=== PATIENT | male | born 1980 | race Caucasian/White ===

== ENCOUNTER → 2021-06-18 | Outpatient (CLI) | payer OTHER | LOC: M LAB 11:49 | PROVIDERS: ATTEND Emergency Medicine | DX: Z30.2 Encounter for sterilization (principal); Z53.8 Procedure and treatment not carried out for other reasons ==

== ENCOUNTER → 2021-06-19 | Outpatient (REF) | payer OTHER ==
[2021-06-19 16:31] LABS: SEMEN APPEARANCE OPAQUE (OPAQUE); SEMEN VISCOSITY LIQUID (LIQUID); SEMEN VOLUME 1.5 ml (2.0-5.0); WBC CONCENTRATION <=1 M/ml (<=1 M/ml)
== END ==
LOC: M LAB REF 16:28
PROVIDERS: ATTEND Surgery
DX: Z30.2 Encounter for sterilization (principal)

== ENCOUNTER 2024-11-10 09:23 | Emergency (ER) | payer OTHER ==
[~2024-11-10] VITALS: Ht 170.2 cm; Wt 62.6 kg
[2024-11-10] MEDS ORDERED: HYDR-3719 PO (09:40)
[2024-11-10] MEDS ORDERED: HOME MED LIST COMPLETE! XX SCH (10:00)
[2024-11-10] MEDS: IBUPROFEN 600 MG TAB PO ONE (10:08)
[2024-11-10] MEDS: TETANUS/DIPHTH/ACEL. PERTUSSIS 0.5 ML SYR IM.IMMUN ONE (10:09)
[2024-11-10] MEDS: LIDOCAINE 1% MDV 20 ML VIAL SC ONE (11:40)
[2024-11-10] MEDS ORDERED: CEPH500C PO (11:41)
[2024-11-10] MEDS: CEPHALEXIN 500 MG CAP PO ONE (11:43)
[2024-11-10 11:45] VITALS: BP 128/99; TEMP 97.6; O2SAT 96
== END 2024-11-10 11:53 | disposition home or self-care (01) ==
LOC: M ED 09:23
DX: S61.412A Laceration without foreign body of left hand, initial encounter (principal); Y92.9 Unspecified place or not applicable; Y93.9 Activity, unspecified; Y99.0 Civilian activity done for income or pay; F17.290 Nicotine dependence, other tobacco product, uncomplicated; F12.10 Cannabis abuse, uncomplicated; Z23 Encounter for immunization; Z88.0 Allergy status to penicillin; Z79.1 Long term (current) use of non-steroidal anti-inflammatories (NSAID); Z79.2 Long term (current) use of antibiotics

== ENCOUNTER → 2024-11-10 | Outpatient (CLI) | payer OTHER ==
[~2024-11-10] MED LIST: CEPH500C PO; HYDR-3719 PO
[2024-11-10 13:10] LABS: PLATELET COUNT, AUTOMATED 219 10^3/uL (150-450)
[2024-11-10 13:38] LABS: ALT/SGPT 24 U/L (7.0-40); AST/SGOT 28 U/L (<34); CALCIUM LEVEL 9.2 MG/DL (8.5-10.1); CARBON DIOXIDE LEVEL 29 MMOL/L (20-31); CHLORIDE LEVEL 105 MMOL/L (98-107); CHOLESTEROL LEVEL 156 MG/DL (<200); CHOLESTEROL RISK RATIO 3.28 (<5); CREATININE FOR GFR 0.93 MG/DL (0.70-1.30); GLOMERULAR FILTRATION RATE > 90.0 (>60); LDL CHOLESTEROL 94.3 MG/DL (<100); NON-HDL-C 108.5 MG/DL; POTASSIUM SERUM 4.4 MMOL/L (3.5-5.1); SODIUM LEVEL 142 MMOL/L (136-145); TRIGLYCERIDES LEVEL 71 MG/DL (<150)
== END ==
LOC: M LAB 12:13
PROVIDERS: ATTEND Internal Medicine
DX: Z00.01 Encounter for general adult medical examination with abnormal findings (principal)